=== PATIENT | female | born 1990 | race Caucasian/White ===

== ENCOUNTER 2016-07-20 12:55 | Emergency (ER) | payer OTHER ==
[2016-07-20 13:43] LABS: URINE BILIRUBIN NEGATIVE (NEGATIVE); URINE BLOOD 4+ (NEGATIVE); URINE GLUCOSE (UA) NEGATIVE (NEGATIVE); URINE LEUKOCYTE ESTERASE NEGATIVE (NEGATIVE); URINE NITRITE NEGATIVE (NEGATIVE); URINE PROTEIN NEGATIVE (NEGATIVE); URINE UROBILINOGEN NORMAL (0-1 mg/dl)
[2016-07-20 13:44] LABS: URINE APPEARANCE HAZY; URINE COLOR YELLOW
[2016-07-20 13:50] LABS: URINE EPITHELIAL CELLS 0-1 /hpf; URINE WBC NEG /hpf
[2016-07-20 13:51] LABS: URINE AMORPHOUS SEDIMENT 2+; URINE BACTERIA FEW
[2016-07-20] MEDS ORDERED: LACTATED RINGERS 1,000 ML ONE (14:36)
[2016-07-20] MEDS ORDERED: MORPHINE SULFATE 4 MG/ML SYRINGE ONE (14:36)
[2016-07-20 14:45] LABS: ABSOLUTE NEUTROPHIL COUNT 2.5 K/mm3 (1.8-7.7); EOS # 0.2 (0.0-0.5); HEMOGLOBIN 11.4 gm/l (12.0-16.0); IMM NEUT% 0.2 % (0-1); LYMPH % 40.1 % (15-45); MEAN CELL VOLUME 88.8 fl (81.0-99.0); MEAN CORPUSCULAR HEMOGLOBIN 29.8 pg (27.0-31.0); MEAN CORPUSCULAR HGB CONC 33.5 g/dl (33.0-37.0); MEAN PLATELET VOLUME 9.3 fl (7.4-10.4); MONO # 0.3 (0.0-0.8); MONO % 6.5 % (4-12); NEUT % 49.2 % (43-75); PLATELET COUNT 191 K/mm3 (130-400); RED CELL DISTRIBUTION WIDTH 13.9 % (11.5-14.5)
[2016-07-20 15:27] LABS: ALB/GLOB RATIO 1.5 (>1.0); ALBUMIN 3.7 gm/dL (3.5-5.7); CALCIUM 8.8 mg/dL (8.6-10.3)
--- NOTE | 2016-07-20 16:12 | US ---
PELVIC ULTRASOUND HISTORY: Status post , evaluate for retained products. Continued abdominal pain and bleeding.. Transabdominal and transvaginal pelvic sonography performed. TRANSABDOMINAL IMAGING UTERINE DIMENSIONS: 10.3 x 6.6 x 5.3 cm. BLADDER: No abnormal filling defect. TRANSVAGINAL IMAGING: ENDOMETRIAL THICKNESS: 6.4 mm. Complex endometrial fluid identified compatible with ongoing bleeding. This measures 5.4 x 2.1 x 1.4 cm. In intrauterine device is seen at the level of the cervix. No hypervascular lesion is identified. FOCAL UTERINE LESIONS: None. RIGHT OVARY: 2.7 x 3.0 x 2.5 cm for a volume of 10.6 cc. LEFT OVARY: 2.0 x 2.0 x 1.5 cm for volume of 3.1 cc. OVARIAN BLOOD FLOW: Documented bilaterally. DOMINANT ADNEXAL LESIONS: 2.0 cm complex cystic focus on the right, with 1.7 cm complex cystic focus on the left. FREE FLUID: None. IMPRESSION: Complex endometrial fluid compatible with blood product; a distinct endometrial hypervascular focus is not identified. Apparent cervical position of intrauterine device. Nondominant complex cystic foci of the ovaries. No gross free fluid. Results were electronically transmitted to the electronic medical record at 07/20/2016 at 1606 hours.
[2016-07-20] MEDS ORDERED: IBUPROFEN 600 MG TABLET ONE (16:44)
== END 2016-07-20 16:58 | disposition home or self-care (01) ==
LOC: ED 12:55
DX: O04.6 Delayed or excessive hemorrhage following (induced) termination of pregnancy (principal)
CPT/HCPCS: 83605; 83690; 85025; 80053; 81001; 76856; 76830; 99284 ×2; 96360; 96361; A9270; J2270; J7120